=== PATIENT | male | born 1930 | race Asian ===

== ENCOUNTER 2018-03-28 22:07 | Inpatient (IN) | payer MEDICARE, MEDICAID ==
[~2018-03-28] VITALS: Ht 180.3 cm; Wt 63.5 kg
[2018-03-28] MEDS ORDERED: [UNRECOGNIZED DRUG - REMARK] (23:25)
[2018-03-28] MEDS ORDERED: FINA5TAB11 PO (23:25)
[2018-03-28] MEDS ORDERED: DOCU-141 PO (23:25)
[2018-03-28] MEDS ORDERED: METF500T6 PO (23:25)
--- NOTE | 2018-03-28 23:50 | NUR ---
DR BLESSING MCGEE MD AT BEDSIDE FOR MSE.
--- NOTE | 2018-03-29 00:15 | NUR ---
LAB AT BEDSIDE FOR BLOOD DRAW.
[2018-03-29 00:34] LABS: CARBON DIOXIDE 27 mmol/L (21-32); CHLORIDE 96 mmol/L (98-107); CREATININE 1.3 mg/dL (0.6-1.3); EOSINOPHILS # (AUTO) 0.2 K/uL (0.0-0.7); EOSINOPHILS % (AUTO) 4.8 % (0.0-7.0); GLUCOSE 132 mg/dL (74-106); HEMATOCRIT 35.8 % (36.7-47.1); HEMOGLOBIN 12.5 g/dL (12.5-16.3); LYMPHOCYTES # (AUTO) 0.9 K/uL (20.0-40.0); LYMPHOCYTES % (AUTO) 21.6 % (20.5-51.5); MEAN CORPUSCULAR HEMOGLOBIN 34.1 uug (23.8-33.4); MEAN CORPUSCULAR HGB CONC 35 g/dL (32.5-36.3); MEAN CORPUSCULAR VOLUME 97.4 fL (73.0-96.2); MONOCYTES # (AUTO) 0.4 K/uL (2.0-10.0); MONOCYTES % (AUTO) 9.9 % (0.0-11.0); NEUTROPHILS # (AUTO) 2.8 K/uL (1.8-8.9); NEUTROPHILS % (AUTO) 62.7 % (38.5-71.5); PLATELET COUNT (AUTO) 143 K/uL (152-348); POTASSIUM 4.7 mmol/L (3.5-5.1); RED BLOOD CELL COUNT(AUTO) 3.68 MIL/uL (4.06-5.63); UREA NITROGEN, BLOOD 23 mg/dL (7-18); WHITE BLOOD COUNT (AUTO) 4.4 K/uL (3.6-10.2)
[2018-03-29 00:40] LABS: ALANINE AMINOTRANSFERASE 15 U/L (16-63); ALKALINE PHOSPHATASE 97 U/L (50-136); ASPARTATE AMINOTRANSFERASE 14 U/L (15-37); BILIRUBIN,DIRECT 0.2 mg/dL (0.0-0.2); BILIRUBIN,TOTAL 0.5 mg/dL (0.2-1.0); TOTAL PROTEIN, SERUM 7.5 g/dL (6.4-8.2)
[2018-03-29] MEDS ORDERED: ONDANSETRON 4 MG/2 ML VIAL IV ONE (01:00)
[2018-03-29] MEDS ORDERED: MORPHINE SULFATE 2 MG/1 ML DISP.SYRIN IV ONE (01:00)
[2018-03-29] MEDS ORDERED: ONDANSETRON 4 MG/2 ML VIAL ONE (01:07)
[2018-03-29] MEDS ORDERED: MORPHINE SULFATE 2 MG/1 ML DISP.SYRIN ONE (01:07)
--- NOTE | 2018-03-29 01:27 | NUR ---
PHARMACY NOTE; MORPHINE AND ZOFRAN INFUSED TO LEFT AC IV SITE
[2018-03-29] MEDS ORDERED: IV NORMAL SALINE 100 ML ONE (01:35)
[2018-03-29] MEDS ORDERED: IOHEXOL 300MG/ML 100 ML INFUS..BTL ONE (01:35)
[2018-03-29] MEDS ORDERED: SWABABLE VALVE TRANSFER SET EA MC ONE (01:35)
--- NOTE | 2018-03-29 01:55 | NUR ---
PT TAKEN TO RADIOLOGY FOR CT/XRAY. NO ACUTE DISTRESS NOTED.
--- NOTE | 2018-03-29 03:38 | NUR ---
PT RESTING IN BED W/ EYES CLOSED. NO ACUTE DISTRESS NOTED.
--- NOTE | 2018-03-29 05:52 | NUR ---
REPORT GIVEN TO MAYELA PALMA.
--- NOTE | 2018-03-29 07:34 | NUR ---
PT TRANSFERED TO FLOOR INSTABLE CONDITION.
--- NOTE | 2018-03-29 07:35 | NUR ---
Received pt from ER via kieran accompanied by staff member. Pt is in stable condition with no apparent s/s of immediate distress, discomfort or SOB.
[2018-03-29 07:55] VITALS: BP 110/77
--- NOTE | 2018-03-29 08:00 | NUR ---
DELIVERY CLERK aware of pt's arrival to the floor, waiting for orders. Pt is alert and oriented times 4. Noted pt is tired and cold, warm blanket provided for the pt.
[2018-03-29 08:16] LABS: *BILIRUBIN,URIN NEGATIVE (NEGATIVE); *BLOOD, URINE NEGATIVE (NEGATIVE); *CLARITY,URINE CLEAR (CLEAR); *COLOR,URINE LIGHT YELLOW (YELLOW); *KETONES,URINE NEGATIVE (NEGATIVE); *PROTEIN,URINE NEGATIVE (NEGATIVE); *UROBILINOGEN,URINE 0.2 E.U./dl (NORMAL); LEUKOCYTE ESTERASE ,URINE NEGATIVE (NEGATIVE); NITRITE, URINE NEGATIVE (NEGATIVE); UGLUCOSE NEGATIVE (NEGATIVE)
[2018-03-29 08:36] LABS: RBC,URINE 0-3 /HPF (0-3)
[2018-03-29 08:37] LABS: BACTERIA,URINE NONE SEEN /HPF (NONE SEEN); SQUAMOUS EPITHELIAL CELL,UR FEW /HPF (NONE SEEN); WBC,URINE NONE SEEN /HPF (0-3)
--- NOTE | 2018-03-29 10:45 | NUR ---
Pt woke up from his nap and able to verbalize needs, pt states he is hungry and wants coffee, pt also states he right leg hurts 9/10 on pain scale and it feels like it is cramping. Dr reece and waiting on orders for pain medication. Dietary was called to provide pt with a meal.
[2018-03-29] MEDS ORDERED: HYDROCODONE/APAP 5-325MG TABLET PO PRN (11:00)
[2018-03-29] MEDS ORDERED: HYDROCODONE/APAP 10-325 MG TABLET PO PRN (11:00)
[2018-03-29] MEDS ORDERED: MORPHINE SULFATE 2 MG/1 ML DISP.SYRIN IV PRN (11:00)
[2018-03-29] MEDS ORDERED: ACETAMINOPHEN 325 MG TABLET PO PRN (11:00)
[2018-03-29] MEDS ORDERED: MAGNESIUM HYDROXIDE 30 ML LIQUID UDC PO PRN (11:00)
[2018-03-29] MEDS ORDERED: Z GUARD REMEDY PASTE 57 GM TUBE TOP PRN (11:00)
--- NOTE | 2018-03-29 11:00 | NUR ---
Provide the pt with a meal from dietary. Pt has visitors
[2018-03-29] MEDS: DOCUSATE SODIUM 250 MG CAPSULE PO SCH ×2 (11:32→16:44)
[2018-03-29 11:42] VITALS: BP 133/69
--- NOTE | 2018-03-29 12:15 | NUR ---
Dr consultation took place, son by bedside
[2018-03-29] MEDS: ONDANSETRON 4 MG/2 ML VIAL IV PRN (12:34)
--- NOTE | 2018-03-29 12:43 | NUR ---
DVT pumps in place. Son by bedside. Explained the medication to son and pt.
[2018-03-29 15:40] VITALS: BP 136/80
--- NOTE | 2018-03-29 15:51 | NUR ---
Pt noted to be sleeping the past few hours, son in the room with the pt, also noted to be sleeping. No s/s of pain, SOB, distress or discomfort.
[2018-03-29] MEDS ORDERED: DOCUSATE SODIUM 100 MG CAPSULE PO SCH (17:00)
[2018-03-29] MEDS ORDERED: LIPA1CAP15 PO (18:45)
--- NOTE | 2018-03-29 19:00 | NUR ---
RECEIVED PATIENT IN BED ALERT, AWAKE, NO SOB NO CHEST PAIN NOTED, PATIENT COMPLAIN OF PAIN BUT REFUSED TO TAKE PAIN MEDS, CONT TO MONITOR.
--- NOTE | 2018-03-29 19:06 | NUR ---
Pt states he takes Creon 36,000 units with meals. aware
[2018-03-29 20:25] VITALS: BP 130/71
[2018-03-30 00:21] VITALS: BP 127/75
--- NOTE | 2018-03-30 01:29 | NUR ---
PATIENT HAS GEN BODY PAIN OFFERED PAIN MEDICATION, BUT REFUSED, STATED " I CAN HANG ON" CONT TO MONITOR. NO SOB NO CHEST PAIN, RYTHM SINUS RYTHM CONT TO MONITOR.
[2018-03-30 05:33] VITALS: BP 128/71
--- NOTE | 2018-03-30 06:37 | NUR ---
PATIENT SLEPT MOST OF THE NIGHT NO SOB NO CHEST PAIN, NO COMPLAIN OF PAIN AT THIS TIME. KEPT CLEAN DRY AND COMFORTABLE. RYTHM SINUS RYTHM, KEPT CLEAN AND DRY. USES URINAL FOR BLADDER ELIMINATION, CALL LIGHT WITHIN REACH.
[2018-03-30 06:47] LABS: CARBON DIOXIDE 30 mmol/L (21-32); CHLORIDE 98 mmol/L (98-107); CREATININE 1.4 mg/dL (0.6-1.3); GLUCOSE 107 mg/dL (74-106); MAGNESIUM 1.9 mg/dL (1.8-2.4); PHOSPHOROUS 4.2 mg/dL (2.5-4.9); POTASSIUM 4.2 mmol/L (3.5-5.1); UREA NITROGEN, BLOOD 19 mg/dL (7-18)
[2018-03-30 06:52] LABS: BASOPHILS # (AUTO) 0.1 K/uL (0.0-8.0); BASOPHILS % (AUTO) 0.9 % (0.0-2.0); EOSINOPHILS # (AUTO) 0.4 K/uL (0.0-0.7); EOSINOPHILS % (AUTO) 6.9 % (0.0-7.0); HEMATOCRIT 34.9 % (36.7-47.1); HEMOGLOBIN 12.1 g/dL (12.5-16.3); LYMPHOCYTES # (AUTO) 1.3 K/uL (20.0-40.0); LYMPHOCYTES % (AUTO) 22.4 % (20.5-51.5); MEAN CORPUSCULAR HEMOGLOBIN 33.5 uug (23.8-33.4); MEAN CORPUSCULAR HGB CONC 35 g/dL (32.5-36.3); MEAN CORPUSCULAR VOLUME 96.8 fL (73.0-96.2); MONOCYTES # (AUTO) 0.6 K/uL (2.0-10.0); NEUTROPHILS # (AUTO) 3.6 K/uL (1.8-8.9); NEUTROPHILS % (AUTO) 59.8 % (38.5-71.5); PLATELET COUNT (AUTO) 140 K/uL (152-348)
[2018-03-30] MEDS ORDERED: Medication Not On Formulary EA (Lipase/Protease/Amylase (Creon Dr 36,000 Units Capsule) PO SCH (08:00)
[2018-03-30] MEDS ORDERED: METFORMIN HCL 500 MG TABLET PO SCH (09:00)
[2018-03-30] MEDS: FINASTERIDE 5 MG TABLET PO SCH (09:36)
[2018-03-30] MEDS: LIPASE/PROTEASE/AMYLASE 4200 UNITS CAPSULE.DR PO SCH ×3 (09:36→17:04)
[2018-03-30] MEDS: DOCUSATE SODIUM 250 MG CAPSULE PO SCH ×2 (09:36→17:04)
[2018-03-30] MEDS: MECLIZINE HCL 12.5 MG TABLET PO SCH ×3 (09:37→21:50)
[2018-03-30] MEDS: ONDANSETRON 4 MG/2 ML VIAL IV PRN (10:01)
[2018-03-30] MEDS ORDERED: DEXTROSE 50% 50 ML DISP.SYRIN IV PRN (10:15)
[2018-03-30 11:18] VITALS: BP 138/77
[2018-03-30] MEDS: BLOOD SUGAR DIAGNOSTIC 1 EACH STRIP VI SCH ×3 (12:19→21:45)
[2018-03-30 15:42] VITALS: BP 133/79
[2018-03-30] MEDS: INSULIN REGULAR, HUMAN 300 UNIT/3 ML VIAL SQ PRN ×2 (17:07→21:47)
--- NOTE | 2018-03-30 18:30 | NUR ---
Pt is in no acute distress. Pt was given zofran earlier for c/o n/v and was effective. No vomiting noted. Call light is within reach.
--- NOTE | 2018-03-30 19:20 | NUR ---
Received pt sleeping during initial rounds. No s/s of respiratory distress noted. Safety measures maintained. Continue care as planned.
--- NOTE | 2018-03-30 19:49 | NUR ---
Hand held assist rendered to the BR, voiding well. Complaint of dizziness when up. Deep breathing exercise encouraged. Slow staedy gait while ambulating with assist to his room. Instructed patient to always ask/call for assistance when getting up and verbalized understanding. Continue to monitor.
[2018-03-30 20:33] VITALS: BP 127/77
[2018-03-31 00:14] VITALS: BP 128/68
[2018-03-31 05:14] VITALS: BP 125/80
[2018-03-31] MEDS: MECLIZINE HCL 12.5 MG TABLET PO SCH ×3 (06:21→21:26)
[2018-03-31] MEDS: BLOOD SUGAR DIAGNOSTIC 1 EACH STRIP VI SCH ×4 (06:24→20:23)
[2018-03-31] MEDS ORDERED: METFORMIN HCL 500 MG TABLET PO SCH (08:00)
[2018-03-31] MEDS: FINASTERIDE 5 MG TABLET PO SCH (08:15)
[2018-03-31] MEDS: LIPASE/PROTEASE/AMYLASE 4200 UNITS CAPSULE.DR PO SCH ×4 (08:15→17:24)
[2018-03-31] MEDS: DOCUSATE SODIUM 250 MG CAPSULE PO SCH ×2 (08:15→17:01)
--- NOTE | 2018-03-31 08:30 | NUR ---
Pt is in no acute distress. Call light is within reach. Discussed plan of care re: fall precautions and pain management. Pt agreeable with plan of care.
[2018-03-31 11:31] VITALS: BP 108/65
[2018-03-31] MEDS: INSULIN REGULAR, HUMAN 300 UNIT/3 ML VIAL SQ PRN ×2 (12:26→20:22)
[2018-03-31 15:34] VITALS: BP 142/83
[2018-03-31 18:30] LABS: *BILIRUBIN,URIN NEGATIVE (NEGATIVE); *BLOOD, URINE NEGATIVE (NEGATIVE); *CLARITY,URINE CLEAR (CLEAR); *COLOR,URINE YELLOW (YELLOW); *KETONES,URINE NEGATIVE (NEGATIVE); *PROTEIN,URINE NEGATIVE (NEGATIVE); *UROBILINOGEN,URINE 0.2 E.U./dl (NORMAL); LEUKOCYTE ESTERASE ,URINE NEGATIVE (NEGATIVE); NITRITE, URINE NEGATIVE (NEGATIVE); UGLUCOSE NEGATIVE (NEGATIVE)
--- NOTE | 2018-03-31 18:30 | NUR ---
Pt is in no acute distress. Pt denies any c/o dizziness or n/v throughout shift. Call light is within reach.
--- NOTE | 2018-03-31 18:55 | NUR ---
Plan of care effective.
[2018-03-31 19:19] LABS: *CREATININE,URINE 38.4 mg/dL (30-125); *URINE TOTAL PROTEIN RANDOM < 6.0 mg/dL (<150/24HR)
--- NOTE | 2018-03-31 19:35 | NUR ---
PT RECEIVED IN BED, AWAKE. A/OX3. ABLE TO MAKE NEEDS KNOWN. V/S STABLE. IN NO ACUTE DISTRESS. NO C/O PAIN AT THIS TIME. IV INTACT AND PATENT, HEP-LOCKED. ON RA, TOLERATING WELL. SINUS 72 WITH BBB ON THE TELE MONITOR. PT C/O CONSTIPATION, MILK OF MAGNESIUM FOR BOWEL REGIMEN. HOB ELEVATED. SAFETY MEASURES IMPLEMENTED. BED ALARM SET. CALL LIGHT PLACED WITHIN REACH.
[2018-03-31 20:04] LABS: BACTERIA,URINE NONE SEEN /HPF (NONE SEEN); RBC,URINE 0-3 /HPF (0-3); SQUAMOUS EPITHELIAL CELL,UR NONE SEEN /HPF (NONE SEEN); WBC,URINE 0-3 /HPF (0-3)
[2018-03-31 20:19] VITALS: BP 133/78
[2018-04-01] VITALS: BP 130/65
[2018-04-01 04:00] VITALS: BP 122/74
--- NOTE | 2018-04-01 05:35 | NUR ---
END OF SHIFT NOTES. PT SLEPT WELL THROUGHOUT SHIFT. IN STABLE CONDITION. NO C/O DIZZINESS THROUGHOUT SHIFT. PT CONT TO C/O CONSTIPATION. COMPLIANT WITH ALL CARE. ALL NEEDS ATTENDED. SAFETY MAINTAINED. CALLED LIGHT WITHIN REACH.
[2018-04-01] MEDS: MECLIZINE HCL 12.5 MG TABLET PO SCH ×2 (06:00→14:19)
[2018-04-01 06:28] LABS: BASOPHILS % (AUTO) 0.6 % (0.0-2.0); EOSINOPHILS # (AUTO) 0.4 K/uL (0.0-0.7); EOSINOPHILS % (AUTO) 6.5 % (0.0-7.0); HEMATOCRIT 36.9 % (36.7-47.1); HEMOGLOBIN 12.9 g/dL (12.5-16.3); LYMPHOCYTES # (AUTO) 1.6 K/uL (20.0-40.0); LYMPHOCYTES % (AUTO) 26.1 % (20.5-51.5); MEAN CORPUSCULAR HEMOGLOBIN 33.4 uug (23.8-33.4); MEAN CORPUSCULAR HGB CONC 35 g/dL (32.5-36.3); MONOCYTES # (AUTO) 0.7 K/uL (2.0-10.0); MONOCYTES % (AUTO) 11.1 % (0.0-11.0); NEUTROPHILS # (AUTO) 3.4 K/uL (1.8-8.9); NEUTROPHILS % (AUTO) 55.7 % (38.5-71.5); PLATELET COUNT (AUTO) 145 K/uL (152-348); RED BLOOD CELL COUNT(AUTO) 3.85 MIL/uL (4.06-5.63); WHITE BLOOD COUNT (AUTO) 6.2 K/uL (3.6-10.2)
[2018-04-01 06:40] LABS: ALANINE AMINOTRANSFERASE 17 U/L (16-63); ALKALINE PHOSPHATASE 73 U/L (50-136); ASPARTATE AMINOTRANSFERASE 19 U/L (15-37); BILIRUBIN,TOTAL 0.6 mg/dL (0.2-1.0); CARBON DIOXIDE 29 mmol/L (21-32); CHLORIDE 96 mmol/L (98-107); CREATININE 1.3 mg/dL (0.6-1.3); GLUCOSE 116 mg/dL (74-106); MAGNESIUM 2.3 mg/dL (1.8-2.4); PHOSPHOROUS 3.8 mg/dL (2.5-4.9); POTASSIUM 4.1 mmol/L (3.5-5.1); TOTAL PROTEIN, SERUM 6.9 g/dL (6.4-8.2); UREA NITROGEN, BLOOD 23 mg/dL (7-18)
[2018-04-01] MEDS: BLOOD SUGAR DIAGNOSTIC 1 EACH STRIP VI SCH ×3 (06:46→17:06)
[2018-04-01] MEDS: LIPASE/PROTEASE/AMYLASE 4200 UNITS CAPSULE.DR PO SCH ×3 (08:13→17:03)
[2018-04-01] MEDS: DOCUSATE SODIUM 250 MG CAPSULE PO SCH ×2 (08:13→17:03)
[2018-04-01] MEDS: FINASTERIDE 5 MG TABLET PO SCH (08:14)
--- NOTE | 2018-04-01 08:30 | NUR ---
pt alert oriented x 4. PT c/o constipation. Stool softener given and prune juice. Awaiting results. Discussed plan of care with pt re: Fall precaution, pain management, and let nursing know if he is nauseated. Pt agreeable with plan of care. Call light is within reach. Tele D/c as ordered per DR Brito.
[2018-04-01 11:15] VITALS: BP 146/79
--- NOTE | 2018-04-01 12:00 | NUR ---
PT was seen by physical therapist and tolerated 200 feet ambulation with min Assist. Pt is in no acute distress. Pt had x 1 large BM - prune juice and stool softener effective. Awaiting decision with case management regarding possible placement to SNF today.
[2018-04-01 12:01] LABS: THYROID STIMULATING HORMONE 2.701 mIU/mL (0.358-3.740)
[2018-04-01 15:16] VITALS: BP 131/73
[2018-04-01] MEDS ORDERED: POLY17PO4 PO (15:52)
[2018-04-01] MEDS ORDERED: ACET325T53 PO (15:52)
[2018-04-01] MEDS ORDERED: MULT1TAB73 PO (15:52)
[2018-04-01] MEDS ORDERED: HYDR-3326 PO (15:52)
[2018-04-01] MEDS: ONDANSETRON 4 MG/2 ML VIAL IV PRN (17:04)
--- NOTE | 2018-04-01 18:27 | NUR ---
Pt is going to [facility]. [id number] [facility] [id number] spoke with Sanjeev RN report given. Clarified antivert with DR danielson. Antivert D/c as ordered. Discharge instructions given to patient. pt to f/u with pmd re: vaccinations and f/u with pmd within 1 week. Medications reconciled for discharge. pt verbalized understanding. Plan of care effective. no fall noted this shift and pt had large bm. Zofran given x 1 this shift effective. Call light is within reach.
--- NOTE | 2018-04-01 19:35 | NUR ---
RECEIVED REPORT FROM RN. PATIENT IS TO BE TRANSFERRED TO [facility] IN [facility]. WAITING FOR AMBULANCE PICK-UP. PATIENT IS AWAKE IN BED. A/O X4. OCCITAN/ARMENIAN SPEAKING. DENIES PAIN OR DISCOMFORT. NO RESP. DISTRESS NOTED. VS WNL. HEPLOCK REMOVED ORDERED. CALL LIGHT IN REACH. ALL NEEDS ATTENDED. WILL CONTINUE TO MONITOR.
--- NOTE | 2018-04-01 20:00 | NUR ---
AMBULANCE AT BEDSIDE TO HEALTH CARE COORDINATOR PATIENT. VS WNL.
--- NOTE | 2018-04-01 20:03 | NUR ---
PATIENT LEFT FACILITY IN STABLE CONDITION. ALL NEEDS ATTENDED.
== END 2018-04-01 20:02 | DRG 102 ==
LOC: ER 22:08 → TELE 03-29 07:29 → MED 04-01 08:00
PROVIDERS: ADMIT Nurse Practitioner Acute Care; ATTEND Nurse Practitioner Acute Care
DX: F07.81 Postconcussional syndrome (principal); G93.40 Encephalopathy, unspecified; N17.0 Acute kidney failure with tubular necrosis; E87.1 Hypo-osmolality and hyponatremia; E86.9 Volume depletion, unspecified; I71.4 Abdominal aortic aneurysm, without rupture; N40.0 Benign prostatic hyperplasia without lower urinary tract symptoms; V89.2XXA Person injured in unspecified motor-vehicle accident, traffic, initial encounter; R53.1 Weakness; Y92.410 Unspecified street and highway as the place of occurrence of the external cause; Z96.641 Presence of right artificial hip joint; N18.9 Chronic kidney disease, unspecified; I12.9 Hypertensive chronic kidney disease with stage 1 through stage 4 chronic kidney disease, or unspecified chronic kidney disease; M27.2 Inflammatory conditions of jaws; M50.30 Other cervical disc degeneration, unspecified cervical region; K74.60 Unspecified cirrhosis of liver; K59.00 Constipation, unspecified; Z79.84 Long term (current) use of oral hypoglycemic drugs; I45.4 Nonspecific intraventricular block; E11.22 Type 2 diabetes mellitus with diabetic chronic kidney disease
CPT/HCPCS: 36415; 70030-TC; 70450; 71045; 72125; 73551; 83735; 84100; 84156; 84300; 84443; 85025; 85730; 93005; 97110; 97116; 97165; 97530; 97535; A4663; J1815; J2270; J2405; J3490; J8597; Q9967